=== PATIENT | female | born 1930 | race Caucasian/White ===

== ENCOUNTER → 2017-11-08 | Outpatient (CLI) | payer MEDICARE, OTHER | END | disposition home or self-care (01) | LOC: MRI 08:50 | DX: M48.04 Spinal stenosis, thoracic region (principal); F32.9 Major depressive disorder, single episode, unspecified | CPT/HCPCS: 72146 ==

== ENCOUNTER → 2019-06-05 | Outpatient (CLI) | payer MEDICARE, OTHER ==
[~2019-06-05] MED LIST: ACET500T68 PO; AMLO5TAB10 PO; ATOR10TA60 PO; BUPIVACAINE MPF 0.25% 10 ML VIAL. ONE; CALC-178 PO; CITA10TA4 PO; CYCL1DRO OP; DENO60DI SQ; DIPH25CA32 PO; IOHEXOL 180 MG/ML 10 ML VIAL. ONE; LEVO125T PO; MULT-18 PO; SERT50TA PO; [UNRECOGNIZED DRUG - OTHER]; methylPREDNISolone ACETATE 40 MG/ML VIAL. ONE
--- NOTE | 2019-06-05 15:35 | PAIN ---
DATE OF SERVICE: 06/05/2019 INITIAL CONSULTATION FOR PAIN CLINIC CHIEF COMPLAINT: Low back and left hip pain. HISTORY OF PRESENT ILLNESS: This is an 89-year-old female who presents with history of pain in the left gluteus really with pain persistent for many years, but worse over the past year. The patient has had pain in the left side of the gluteus, worse with sitting, especially driving a car. 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 The patient reports it does not awake her from sleep at night, she generally sleeps well. It does not affect her bowel or bladder control, but does affect her ability to walk significantly, especially standing more than 10-15 minutes, especially riding, sitting in a car and sitting for more than 10-15 minutes becomes excruciating. The patient reports she has had multiple therapies, physical therapies, chiropractic treatments. She has also had transforaminal epidural injections. She has had piriformis injections on the left, left hip joint injection, spinal cord stimulator trial which was not successful. No significant decrease in pain with any of these modalities by her report. She has tried hydrocodone as well as oxycodone and gabapentin, all of which did not decrease the pain. The patient has had low back surgery at L3-L4, L4-L5 and L5S1 levels in the past as well. The patient describes the pain as intermittent in intensity, radiating into the left posterior gluteus and thigh at times, but mostly just in the gluteus itself, again worse with walking, standing and pressure on the region. The patient had an MRI scan of the lumbar spine dated 01/2019 showing advanced multilevel lumbar spondylosis, multilevel high-grade neural foraminal narrowing present. Changes are most pronounced on the left at L3L4 and on the right at L3-L4 as well as L4-L5. Overall appearance is similar to previous examination. Slight interval progression of now chronic T12 osteoporotic compression fracture with very minimal associated residual marrow edema. Compared to film from 02/03/2019, the patient reports her disability rating from 0-10, 10 being at worst, is a 6 with family and home responsibilities, 9 with social activity and with occupation, 10 with self-care, especially driving and 5 with life support activities. PAST MEDICAL HISTORY: Significant for hearing loss, hypertension, arthritis, previous breast cancer in 2007. PREVIOUS SURGERIES: Include mastectomy in 2007, bilateral rotator cuff repairs, cataract extractions, hysterectomy and lumbar laminectomy with Dr. Lopez in the past. CURRENT MEDICATIONS: Include Zoloft, Synthroid and amlodipine. ALLERGIES: The patient is allergic to DAIRY and NONSTEROIDAL ANTIINFLAMMATORIES. FAMILY HISTORY: Significant for colon cancer in the patient's mother and sister with polycystic kidney disease. SOCIAL HISTORY: The patient does not drink alcohol, does not smoke, does not use any illegal, illicit or recreational drugs. She is and lives locally in [place], [place]. She is currently retired. REVIEW OF SYSTEMS: The patient's review of systems is positive for those items mentioned in the history of present illness. All systems reviewed and otherwise negative. It is complete, full and well documented on the patient's chart. PHYSICAL EXAMINATION: VITAL SIGNS: The patient's blood pressure is 144/69, pulse is 73, respirations 18, temperature 98.3 degrees Fahrenheit. Height is 5 feet 7 inches. Weight is 125 pounds. GENERAL: The patient is awake, alert, oriented, appropriate, very pleasant demeanor. The patient ____ a friend, who drove her today. HEENT: Head shows normocephalic, atraumatic. Extraocular movements are intact and symmetrical. Oral cavity: Mucous membranes moist and pink. Dentition is intact. NECK: Shows anterior throat supple without palpable lymphadenopathy noted. Swallow reflex symmetrical. CHEST: Shows normal on inspection. Breath sounds are clear to auscultation bilaterally. HEART: Shows S1, S2 clear. No murmurs auscultated. ABDOMEN: Soft, nontender, nondistended. No palpable organomegaly is noted. No rebound or guarding demonstrated. BACK: Shows spine grossly in the midline. Normal appearing thoracic kyphosis. Some minor flattening of lumbar lordotic curvature with well-healed surgical scarring noted. Lumbar paraspinous muscle shows symmetrical on inspection, with palpation shows some mild tenderness diffusely throughout the upper, middle and lower distribution of paraspinous muscles bilaterally without radiation. The patient does show good rotational motion of the lumbar spine, both laterally greater than 10 degrees right and left as well as extension greater than 10 degrees, forward flexion 45 degrees without significant pain reported in any of these maneuvers. No tenderness over the spinous processes or the sacrum or the sacroiliac region including the posterior superior iliac spine. With palpation in the left posterior gluteus and over the ischial tuberosity, it is significantly tender, very excruciatingly tender with the patient pulling away from the examining hand on the left side only. Right side is nontender. This is through into the gluteus musculature inferiorly as well with very firm rope-like musculature in the gluteus itself and around the ischial tuberosity inferior to this and slightly lateral as well. No specific radiation is demonstrated and again no tenderness on the same area on the right. EXTREMITIES: The patient's lower extremities show deep tendon reflexes, 2+ in the patella, 1+ tendo-calcaneus tendons. Motor exam is strong with approximately 4 on a scale of 5, but equal and symmetrical bilaterally with dorsiflexion, extension, quadriceps and hamstring flexion. Peripheral pulses are 1+ posterior tibia. No peripheral edema is noted. Lower extremities are warm and dry to touch, equal in color and appearance. Straight leg raise is noted to be negative for reproduction of radicular symptoms bilaterally. Gaenslen's and Junior's maneuvers are negative bilaterally as well. The patient is able to stand, has some difficulty trying to stand on her toes, but is able to do so without significant loss of balance, walks with a normal-appearing gait, not using any assistive devices to ambulate. SKIN: Shows warm and dry, good turgor. No edema. No sores, rashes or bruising throughout. IMPRESSION: 1. This is an 89-year-old female with a long history of low back and left lower extremity pain. 2. Arthritis. 3. Hypertension. 4. History of breast cancer. PLAN: Options were discussed with the patient including conservative medical management, continued physical therapy, interventional techniques and she would like to pursue interventional techniques. Again, she has had multiple techniques tried without significant improvement. We discussed trigger point injections of the left gluteus and the insertion at the hamstrings tendon on the ischial tuberosity itself. This is a very tender area consistent with some periosteal tenderness and tendinitis of the hamstrings insertion. The patient would like to proceed. Risks were discussed including but not limited to bleeding, infection, possibility of intravascular injection sequelae, spread of local anesthetic and numbness, side effects of steroid medication, exposure to fluoroscopy and poor results regarding pain control. The patient understands and wished to proceed. The patient will return to the clinic in approximately 2 weeks for followup. She was counseled as to return appointment, activity level and side effects to be aware of. DIAGNOSIS: Myofascial pain. PROCEDURE: Trigger point injections, left gluteus musculature, under sterile prep and drape using local anesthetic. MEDICATIONS INJECTED: A total of 5 mL of 0.25% bupivacaine as well as 40 mg of DepoMedrol with negative aspiration at each injection site. CONDITION AT DISCHARGE: Stable. The patient tolerated the procedure well, had no complications. MALIA CESAR MD DR: ARPITA/marcos JOB#: [id number] / [id number] ecc ,
== END ==
LOC: PNCL 09:01
PROVIDERS: ATTEND Anesthesiology
DX: M79.18 Myalgia, other site (principal); I10 Essential (primary) hypertension; Z90.710 Acquired absence of both cervix and uterus; Z85.3 Personal history of malignant neoplasm of breast; Z98.890 Other specified postprocedural states; Z90.10 Acquired absence of unspecified breast and nipple; Z88.8 Allergy status to other drugs, medicaments and biological substances; Z91.011 Allergy to milk products
CPT/HCPCS: 20552; J1030; J3490; Q9965

== ENCOUNTER → 2019-06-16 | Outpatient (CLI) | payer MEDICARE, OTHER ==
[~2019-06-16] MED LIST changes: +GABA-585 PO; -methylPREDNISolone ACETATE 40 MG/ML VIAL. ONE; +methylPREDNISolone ACETATE 80 MG/ML VIAL. ONE
--- NOTE | 2019-06-16 11:34 | PAIN ---
DATE OF SERVICE: 06/16/2019 PROGRESS NOTE FOR PAIN CLINIC DIAGNOSES: 1. Lumbar radiculopathy with lumbar post-laminectomy syndrome. 2. Myofascial pain. HISTORY OF PRESENT ILLNESS: The patient is an 89-year-old female who returns for followup status post left trigger point injections in the gluteus without significant decrease in pain. The patient reports still significant pain in the low back radiating down the posterior gluteus, posterior thigh with more radiating pain than previously, still hurts in the hip. The patient reports that 2 days ago, she had 0 pain for the entire day, but the next day, the pain came back just like it was in the low back and leg as previously. The patient has had multiple procedures in the past including spinal cord stimulator trial, which was not successful as well. The patient reports the pain is a 9 on a scale of 10 at its worst in the past week, 5 on average, 2 at its least and is a 2 today. The patient reports no new motor or sensory deficits, no new bowel or bladder incontinence. Describes the pain as aching and dull, shooting into the left lower extremity as described. PHYSICAL EXAMINATION: VITAL SIGNS: The patient's blood pressure is 146/74, pulse 71, respirations 16, temperature 97.5 degrees Fahrenheit, weight is 124 pounds. GENERAL: The patient is awake, alert, oriented, appropriate, very pleasant demeanor. HEENT: Shows normocephalic, atraumatic. Extraocular movements are intact and symmetrical. Oral cavity shows mucous membranes moist and pink. Dentition is intact. NECK: Shows anterior throat supple without palpable lymphadenopathy noted. Swallow reflex symmetrical. CHEST: Shows normal on inspection. Breath sounds are clear bilaterally. HEART: Shows S1, S2 clear. No murmurs auscultated. ABDOMEN: Soft, nontender, nondistended. BACK: Shows spine grossly in the midline. Normal appearing thoracic kyphosis and lumbar flattening with well-healed surgical scar noted in the lumbar distribution and lumbar curvature flattening. Lumbar paraspinous muscle shows symmetrical on inspection, with palpation shows some moderate tenderness throughout the upper, middle and lower distribution of the paraspinous musculature bilaterally, more on the left side than the right, but without specific trigger points or radiation. The patient has good rotational motion of lumbar spine, both laterally as well as extension and flexion without significant increase in pain. EXTREMITIES: Lower extremities show deep tendon reflexes at 2+ in the patellar and 1+ in the tendo-calcaneus tendon. Motor exam is strong with approximately 4 on a scale of 5, but equal and symmetrical bilaterally. Peripheral pulses are 1+ posterior tibia. No peripheral edema is noted. Options were discussed with the patient. The patient's old chart was reviewed as her current medication regimen updated. Current review of systems updated today as well. We will proceed with a left L5-S1 transforaminal injection today with fluoroscopic guidance. Risks were again discussed including, but not limited to bleeding, infection, possibility of epidural hematoma, subsequent neurological compromise, dural puncture, headaches, spinal cord and/or nerve damage, side effects of steroid medication, potential injection of the vertebral artery at that level and permanent ischemic damage as well as poor results regarding pain control. The patient understands and wished to proceed. The patient will return to clinic in approximately 2 weeks for followup. She was counseled as to return appointment, activity level and side effects to be aware of. DIAGNOSES: Lumbar radiculopathy with lumbar post-laminectomy syndrome. PROCEDURE: Lumbar transforaminal injection at L5-S1 using C-arm fluoroscopic guidance under sterile prep and drape using local anesthetic. MEDICATION INJECTED: A total of 2 mL of 0.25% bupivacaine, 1.5 mL of contrast and 80 mg Depo-Medrol with good medial spread of the contrast into the epidural space as well as lateral spread along the nerve root at that level with no washout detected on digital subtraction. CONDITION AT DISCHARGE: Stable. The patient tolerated the procedure well, had no complications. MALIA CESAR MD DR: ARPITA/marcos JOB#: [id number] / [id number]
== END ==
LOC: PNCL 10:03
PROVIDERS: ATTEND Anesthesiology
DX: M54.16 Radiculopathy, lumbar region (principal); M96.1 Postlaminectomy syndrome, not elsewhere classified; M79.18 Myalgia, other site
CPT/HCPCS: 64483; J1040; J3490; Q9965

== ENCOUNTER → 2019-07-12 | Outpatient (CLI) | payer MEDICARE, OTHER ==
[~2019-07-12] MED LIST changes: +GABA300C18 PO; +methylPREDNISolone ACETATE 40 MG/ML VIAL. ONE
--- NOTE | 2019-07-12 14:03 | PAIN ---
DATE OF SERVICE: 07/12/2019 PROGRESS NOTE FOR PAIN CLINIC DIAGNOSIS: Lumbar radiculopathy with lumbar post-laminectomy syndrome. HISTORY OF PRESENT ILLNESS: The patient is an 89-year-old female who returns for followup, status post lumbar transforaminal injection at L5-S1 on the left on 06/16/2019. The patient did very well, reports about 50% improvement, which is still maintaining the same level of improvement in the low back and left leg. The patient reports still has some pain in the posterior gluteus, posterior thigh on the left, but much reduced from what it was. The patient reports she has been increasing her activity with doing distance walking, traveling with greater ease and comfort, doing household activities with much greater ease. The patient reports she is sleeping better at night, does not awaken her from sleep. Reports the pain is 8 on a scale of 10 at its worst, 5 to 6 on average and a 3 on its least and is a 5 today. The patient reports it is aching, radiating to the left leg, but only intermittently and worse with sitting on the left leg as well for prolonged periods more than about 20 to 30 minutes. PHYSICAL EXAMINATION: VITAL SIGNS: The patient's blood pressure 158/74, pulse 67, respirations 16, temperature 97.3 degrees Fahrenheit, height is 5 feet 7 inches, weight is 126 pounds. GENERAL: The patient is awake, alert, oriented, appropriate, very pleasant demeanor. HEENT: Shows normocephalic, atraumatic. Extraocular movements are intact and symmetrical. Oral cavity: Mucous membranes moist and pink. Dentition is intact. NECK: Shows anterior throat supple without palpable lymphadenopathy noted. Swallow reflex symmetrical. CHEST: Shows normal on inspection. Breath sounds are clear bilaterally. HEART: Shows S1, S2 clear. ABDOMEN: Soft, nontender, nondistended. BACK: Shows spine grossly in the midline. Some slight flattening of lumbar lordotic curvature, normal thoracic kyphotic curvature. Well-healed surgical scars noted in the lumbar distribution. Lumbar paraspinous muscle shows symmetrical on inspection, with palpation shows some mild tenderness diffusely in the low lumbar distribution, slightly more on the left than the right, but only diffusely without radiation, without trigger points. The patient has good rotational motion of the lumbar spine, both laterally as well as extension and flexion without significant increase in pain. EXTREMITIES: Lower extremities show deep tendon reflexes at 2+ in the patellar, 1+ tendo-calcaneus tendons. Motor exam is 4 on a scale of 5, but equal and symmetrical bilaterally with dorsiflexion, extension, quadriceps, and hamstring flexion. Peripheral pulses are 1+ posterior tibia. No peripheral edema is noted bilaterally. PLAN: Options were discussed with the patient. The patient's old chart was reviewed as her current medication regimen updated. Current review of systems updated today as well. We will proceed with a second in this series of left L5-S1 transforaminal epidural injection using C-arm fluoroscopic guidance. Risks were again discussed including, but not limited to bleeding, infection, possibility of epidural hematoma, subsequent neurological compromise, dural puncture, headaches, spinal cord and/or nerve damage, side effects of steroid medication, potential injection of the vertebral artery at that level and permanent ischemic damage as well as poor results regarding pain control. The patient understands and wished to proceed. The patient will return to clinic in approximately 2 weeks for followup. She was counseled on return appointment, activity level and side effects to be aware of. DIAGNOSIS: Lumbar radiculopathy with lumbar post-laminectomy syndrome. PROCEDURE: Lumbar L5-S1 transforaminal injection on the left with C-arm fluoroscopic guidance under sterile prep and drape using local anesthetic. MEDICATION INJECTED: A total of 80 mg Depo-Medrol plus 2 mL of 0.25% bupivacaine, 1.5 mL of contrast with good spread medially into the epidural space as well as laterally along the nerve root, no uptake was noted with digital subtraction. CONDITION AT DISCHARGE: Stable. The patient tolerated the procedure well, had no complications. MALIA CESAR MD DR: ARPITA/marcos JOB#: [id number] / [id number]
== END ==
LOC: PNCL 10:01
PROVIDERS: ATTEND Anesthesiology
DX: M54.16 Radiculopathy, lumbar region (principal); M96.1 Postlaminectomy syndrome, not elsewhere classified
CPT/HCPCS: 64483; J1040; J3490; Q9965; J1030

== ENCOUNTER → 2019-08-02 | Outpatient (CLI) | payer MEDICARE, OTHER ==
[~2019-08-02] MED LIST changes: -methylPREDNISolone ACETATE 40 MG/ML VIAL. ONE
--- NOTE | 2019-08-03 02:40 | PAIN ---
DATE OF SERVICE: 08/02/2019 PROGRESS NOTE FOR PAIN CLINIC DIAGNOSES: 1. Lumbar radiculopathy with lumbar post-laminectomy syndrome. 2. Myofascial pain. 3. Left hip join pain. HISTORY OF PRESENT ILLNESS: The patient is an 89-year-old female who returns for followup status post lumbar transforaminal injections, trigger point injections of the left hip and transforaminal injection x 2, with 50% improvement after the first injection in June and then on 07/12 had a left lumbar transforaminal with no significant improvement. We discussed other options at her last visit and she is noticing that the pain is mainly coming from the left hip and into the lower leg at that point, it is not as much in the back at this point consistent with some piriformis syndrome findings. The patient reports pain is a 10 on a scale of 10 at its worst over the past week, 7 on average, 1 at its least and is a 7 today. The patient reports it is aching, sharp, becoming more constant, on and off in intensity, but she cannot sit for more than about 10 minutes. She has to lie down and she is indeed lying down in the waiting room today as well as in the exam room on initial evaluation. The patient reports the pain is in the left hip radiating to posterior thigh, posterior calf and into the left ankle. The patient reports it is worse with walking, standing and sitting, does not awaken her from sleep, better with lying down and lying on her right side. PHYSICAL EXAMINATION: VITAL SIGNS: The patient's blood pressure 128/78, pulse 67, respirations 18, temperature 98.2 degrees Fahrenheit, height is 5 feet 7 inches, weight is 126 pounds. GENERAL: The patient is awake, alert, oriented, appropriate, very pleasant demeanor. HEENT: Shows normocephalic, atraumatic. Extraocular movements are intact and symmetrical. Oral cavity: Mucous membranes moist and pink. Dentition is intact. NECK: Shows anterior throat supple without palpable lymphadenopathy noted. CHEST: Shows breath sounds clear to auscultation bilaterally. HEART: Shows S1, S2 clear. No murmurs auscultated. ABDOMEN: Soft, nontender, nondistended. No palpable organomegaly is noted. No rebound or guarding. BACK: Shows spine grossly in the midline. Normal appearing thoracic kyphosis and some minor flattening of lumbar lordotic curvature. Well-healed surgical scar noted. Lumbar paraspinous musculature shows some moderate tenderness diffusely bilaterally going diffusely without significant radiation. The patient has good rotational motion of lumbar spine without significant difficulty or pain reported. EXTREMITIES: Lower extremities show deep tendon reflexes 2+ in the patellar, 1+ tendo-calcaneus tendons. Motor exam is approximately 4 on a scale of 5, but equal and symmetrical with dorsiflexion, extension, quadriceps and hamstring flexion bilaterally. Options were discussed with the patient. The patient's old chart was reviewed as her current medication regimen updated. Current review of systems updated today as well. We will proceed with a left sided piriformis injection today with fluoroscopic guidance. Risks were again discussed including, but not limited to bleeding, infection, possibility of epidural hematoma, possible intravascular injection sequelae, spread of local anesthetic and numbness, side effects of steroid medication as well as poor results regarding pain control. The patient understands and wished to proceed. The patient will return to clinic in approximately 2 weeks for followup. She was counseled as to return appointment, activity level and side effects to be aware of. DIAGNOSIS: Lumbar radiculopathy with left piriformis syndrome. PROCEDURE: Left piriformis injection using C-arm fluoroscopic guidance under sterile prep and drape using local anesthetic. MEDICATION INJECTED: A total of 80 mg Depo-Medrol plus 3 mL of 0.25% bupivacaine and 1.5 mL of contrast. CONDITION AT DISCHARGE: Stable. The patient tolerated procedure well, had no complications. MALIA CESAR MD DR: ARPITA/marcos JOB#: [id number] / [id number]
== END | disposition home or self-care (01) ==
LOC: PNCL 09:54
PROVIDERS: ATTEND Anesthesiology
DX: M79.18 Myalgia, other site (principal); M54.16 Radiculopathy, lumbar region; M96.1 Postlaminectomy syndrome, not elsewhere classified
CPT/HCPCS: 20552; 77002; J1040; J3490; Q9965

== ENCOUNTER → 2019-08-16 | Outpatient (CLI) | payer MEDICARE, OTHER ==
[~2019-08-16] MED LIST changes: -BUPIVACAINE MPF 0.25% 10 ML VIAL. ONE; +methylPREDNISolone ACETATE 40 MG/ML VIAL. ONE
--- NOTE | 2019-08-16 21:09 | PAIN ---
DATE OF SERVICE: 08/16/2019 PROGRESS NOTE FOR PAIN CLINIC DIAGNOSES: 1. Lumbar radiculopathy with lumbar post-laminectomy syndrome. 2. Myofascial pain. HISTORY OF PRESENT ILLNESS: The patient is an 89-year-old female who returns for followup status post transforaminal injections, lumbar as well as last visit a piriformis injection on the left. The patient reports only minimal decrease in pain but was better for a few days following the injection, but the pain is still significant in the low back, left lower extremity radiating to posterior gluteus, posterior thigh, and posterior calf, worse with walking, standing, and changing positions, sometimes better with walking, but then worse with standing for prolonged periods or sitting for more than 10-15 minutes at a time on the left side. The patient reports no new motor or sensory deficits, no new bowel or bladder incontinence or other complaints. Still significant pain in the low back, left gluteus, left thigh, reported as 7 on a scale of 10 at its worst over the past week, 5 on average, 2 at its least and is a 5 today. The patient reports it is aching and sharp, on and off in intensity. The patient reports it has generally not awakened her from sleep lately but can once in a while. The patient was increasing her walking initially, but now, the walking is becoming painful on some days but not others. PHYSICAL EXAMINATION: VITAL SIGNS: The patient's blood pressure is 130/70, pulse 67, respirations 18, temperature 97.4 degrees Fahrenheit, height is 5 feet 7 inches, and weight is 127 pounds. GENERAL: The patient is awake, alert, oriented, appropriate, very pleasant demeanor. HEENT: Shows normocephalic, atraumatic. Extraocular movements are intact and symmetrical. Oral cavity shows mucous membranes moist and pink. Dentition is intact. NECK: Shows anterior throat supple without palpable lymphadenopathy noted. Swallow reflex symmetrical. CHEST: Shows normal on inspection. Breath sounds clear to auscultation bilaterally. HEART: Shows S1, S2 clear. No murmurs auscultated. ABDOMEN: Soft, nontender, and nondistended. BACK: Shows spine grossly in the midline. Normal-appearing thoracic kyphosis and some minor flattening of lumbar lordotic curvature with well-healed surgical scar noted. Lumbar paraspinous muscle shows symmetrical on inspection. On palpation, some only mild tenderness in the low lumbar distribution diffusely. The patient has full rotational motion of lumbar spine, both laterally as well as extension and flexion without difficulty. EXTREMITIES: The patient's lower extremities show deep tendon reflexes at 2+ in the patellar, 1+ tendo-calcaneus tendons. Motor exam is approximately 4 on a scale of 5, but equal and symmetrical with dorsiflexion, extension, quadriceps and hamstring flexion. Peripheral pulses are 1+ in posterior tibia. No peripheral edema bilaterally. Options were discussed with the patient. The patient's old chart was reviewed as her current medication regimen updated. Current review of systems updated today as well, and we will proceed with a caudal approach, epidural steroid injection today with fluoroscopic guidance. Risks were again discussed including but not limited to bleeding, infection, possibility of epidural hematoma, subsequent neurological compromise, dural puncture, headaches, spinal cord and/or nerve damage, side effects of steroid medication and poor results regarding pain control. The patient understands and wished to proceed. The patient will return to the clinic in approximately 2 weeks for followup. She was counseled on return appointment, activity level, and side effects to be aware of. DIAGNOSIS: Lumbar radiculopathy with lumbar post-laminectomy syndrome. PROCEDURE: Caudal epidural steroid injection using C-arm fluoroscopic guidance under sterile prep and drape using local anesthetic. MEDICATION INJECTED: Total of 120 mg Depo-Medrol plus 10 mL of preservative-free normal saline and 2 mL of contrast. CONDITION AT DISCHARGE: Stable. The patient tolerated the procedure well, had no complications. MALIA CESAR MD DR: ARPITA/marcos JOB#: [id number] / [id number]
== END ==
LOC: PNCL 10:10
PROVIDERS: ATTEND Anesthesiology
DX: M54.16 Radiculopathy, lumbar region (principal); M96.1 Postlaminectomy syndrome, not elsewhere classified; M79.18 Myalgia, other site
CPT/HCPCS: 62323; J1030; J1040; Q9965

== ENCOUNTER → 2019-08-30 | Outpatient (CLI) | payer MEDICARE, OTHER ==
--- NOTE | 2019-08-30 12:56 | PAIN ---
DATE OF SERVICE: 08/30/2019 PROGRESS NOTE FOR PAIN CLINIC DIAGNOSES: 1. Lumbar radiculopathy with lumbar post-laminectomy syndrome. 2. Myofascial pain and piriformis syndrome. HISTORY OF PRESENT ILLNESS: The patient is an 89-year-old female who returns for followup status post caudal epidural steroid injection x1 with about 60% improvement in the left hip and leg pain. The patient reports she has not done very well with the other injections. We did transforaminal injections on the left piriformis injection only with minimal decrease in pain about 50% with the transforaminal injection and trigger points were not helpful in the past as well. The patient reports that the caudal epidural helped the most of any of the approaches we have done with her injections. The patient reports still some pain in the left hip and into the posterior thigh, but only very minimal and now it comes and goes. The patient reports she has increased her activity with greater ease and comfort, walking better, traveling with better ease and comfort as well and sleeping better at night, does not awaken her from sleep generally. The patient reports no new motor or sensory deficits, no new bowel or bladder incontinence. Rates his pain as a 6 on a scale of 10 at its worst, 4 on average, 2 at its least over the past week and is a 2 today. PHYSICAL EXAMINATION: VITAL SIGNS: The patient's blood pressure is 132/75, pulse 75, respirations 18, temperature is 98.0 degrees Fahrenheit, height is 5 feet 7 inches, weighs 131 pounds. GENERAL: The patient is awake, alert, oriented, appropriate, very pleasant demeanor. HEENT: Head shows normocephalic, atraumatic. Extraocular movements are intact and symmetrical. Oral cavity: Mucous membranes are moist and pink. Dentition is intact. NECK: Shows anterior throat supple without palpable lymphadenopathy noted. Swallow reflex symmetrical. CHEST: Shows normal on inspection. Breath sounds are clear to auscultation bilaterally. HEART: Shows S1, S2 clear. No murmurs auscultated. ABDOMEN: Soft, nontender, nondistended. No palpable organomegaly is noted. No rebound or guarding demonstrated. BACK: Shows spine grossly in the midline. Normal appearing thoracic kyphosis and minor flattening of lumbar lordotic curvature with well-healed surgical scar noted. Lumbar paraspinous muscle shows symmetrical on inspection, on palpation shows some moderate tenderness diffusely bilaterally going diffusely without significant radiation. EXTREMITIES: The patient's lower extremities show deep tendon reflexes at 2+ in the patellar, 1+ tendo-calcaneus tendons. Motor exam is 4 on a scale of 5, but equal and symmetrical with dorsiflexion, extension, quadriceps and hamstring flexion bilaterally. Peripheral pulses are 1+ posterior tibia. No peripheral edema is noted. Options were discussed with the patient. The patient's old chart was reviewed as her current medication regimen updated. Current review of systems updated today as well. We will proceed with a second in a series of caudal approach epidural steroid injection today with fluoroscopic guidance. Risks were again discussed including, but not limited to bleeding, infection, possibility of epidural hematoma, subsequent neurological compromise, dural puncture, headaches, spinal cord and/or nerve damage, side effects of steroid medication and poor results regarding pain control. The patient understands and wished to proceed. The patient will return to clinic in approximately 2 weeks for followup. She was counseled on return appointment, activity level and side effects to be aware of. DIAGNOSIS: Lumbar radiculopathy with lumbar post-laminectomy syndrome. PROCEDURE: Lumbar epidural steroid injection, caudal approach at the caudal sacral hiatus under sterile prep and drape using local anesthetic. MEDICATION INJECTED: A total of 120 mg Depo-Medrol plus 10 mL of preservative-free normal saline and 2 mL of contrast. CONDITION AT DISCHARGE: Stable. The patient tolerated the procedure well, had no complications. MALIA CESAR MD DR: ARPITA/marcos JOB#: [id number] / [id number]
== END ==
LOC: PNCL 10:01
PROVIDERS: ATTEND Anesthesiology
DX: M54.16 Radiculopathy, lumbar region (principal); M96.1 Postlaminectomy syndrome, not elsewhere classified
CPT/HCPCS: 62323; J1030; J1040; Q9965

== ENCOUNTER → 2019-12-04 | Outpatient (CLI) | payer MEDICARE, OTHER ==
--- NOTE | 2019-12-04 14:26 | PAIN ---
DATE OF SERVICE: 12/04/2019 PROGRESS NOTE FOR PAIN CLINIC DIAGNOSES: 1. Lumbar radiculopathy with lumbar post-laminectomy syndrome. 2. Myofascial pain. HISTORY OF PRESENT ILLNESS: The patient is an 89-year-old female who returns for followup status post caudal epidural steroid injection x 2, most recently on 08/30. The patient did very well with about 100% improvement by her estimation until about a week ago. The pain began to return in the left posterior gluteus, posterior thigh, radiating across the low back as well. The patient reports it is aching, on and off in intensity, worse with activity, standing, walking, changing positions, rates as 8 on a scale of 10 at its worst over the past week, 5-6 on average, 2-3 at its least and is a 5 today. The patient reports no loss of motor function, but significant pain and fatigability of the left hip. The patient reports it does not generally awaken her from sleep at night. Initially, she was doing much better with activity, walking, doing work activities, household activities, traveling with greater ease and comfort. The patient reports now the pain is returning to a fairly significant extent for the past week. No new motor or sensory deficits, no new bowel or bladder incontinence or other complaints. PHYSICAL EXAMINATION: VITAL SIGNS: The patient's blood pressure 157/83, pulse 88, respirations 18, temperature 98.6 degrees Fahrenheit, and weight is 132 pounds. GENERAL: The patient is awake, alert, oriented, appropriate, very pleasant demeanor. HEENT: Shows normocephalic, atraumatic. Extraocular movements are intact and symmetrical. Oral cavity shows mucous membranes moist and pink. Dentition is intact. NECK: Shows anterior throat supple without palpable lymphadenopathy noted. Swallow reflex symmetrical. CHEST: Shows normal on inspection. Breath sounds are clear bilaterally. HEART: Shows S1, S2 clear. No murmurs auscultated. ABDOMEN: Soft, nontender, nondistended. No palpable organomegaly is noted. No rebound or guarding demonstrated. BACK: Shows spine grossly in the midline. Slight exaggeration of thoracic kyphosis and minor flattening of lumbar lordotic curvature. There is some moderate tenderness with palpation in the lower thoracic and upper lumbar distribution over the spinous processes, but without radiation. Lumbar paraspinous muscle shows symmetrical on inspection, with palpation shows some moderate tenderness, but only diffusely in the low lumbar distribution bilaterally without radiation. The patient has good rotational motion of lumbar spine, both laterally as well as extension and flexion without significant increase in pain. EXTREMITIES: The patient's lower extremities show deep tendon reflexes 2+ in the patellar, 1+ tendo-calcaneus tendons. Motor exam is approximately 4 on a scale of 5, but equal and symmetrical bilaterally. Peripheral pulses are 1+ posterior tibia. No peripheral edema is noted bilaterally. Options were discussed with the patient. The patient's old chart was reviewed as her current medication regimen updated. Current review of systems updated today as well. We will proceed with a third in the series of caudal approach epidural steroid injection with fluoroscopic guidance. Risks were again discussed including, but not limited to bleeding, infection, possibility of epidural hematoma, subsequent neurological compromise, dural puncture, headaches, spinal cord and/or nerve damage, side effects of steroid medication and poor results regarding pain control. The patient understands and wished to proceed. The patient will return to clinic in approximately 2 weeks for followup. She was counseled on return appointment, activity level and side effects to be aware of. DIAGNOSES: Lumbar radiculopathy with lumbar post-laminectomy syndrome. PROCEDURE: Lumbar epidural steroid injection, caudal approach using C-arm fluoroscopic guidance under sterile prep and drape using local anesthetic. MEDICATION INJECTED: A total of 120 mg Depo-Medrol plus 10 mL of preservative-free normal saline and 2 mL of contrast. CONDITION AT DISCHARGE: Stable. The patient tolerated the procedure well, had no complications. MALIA CESAR MD DR: ARPITA/marcos JOB#: [id number] / [id number]
== END ==
LOC: PNCL 12:52
PROVIDERS: ATTEND Anesthesiology
DX: M54.16 Radiculopathy, lumbar region (principal); M96.1 Postlaminectomy syndrome, not elsewhere classified; M79.18 Myalgia, other site
CPT/HCPCS: 62323; J1030; J1040; Q9965

== ENCOUNTER → 2019-12-04 | Outpatient (CLI) | payer MEDICARE, OTHER ==
[~2019-12-04] MED LIST changes: -IOHEXOL 180 MG/ML 10 ML VIAL. ONE; -methylPREDNISolone ACETATE 40 MG/ML VIAL. ONE; -methylPREDNISolone ACETATE 80 MG/ML VIAL. ONE
--- NOTE | 2019-12-04 16:39 | RAD ---
Three-view thoracic spine series Clinical indications: Left-sided thoracic pain. History T12 fracture. COMPARISON STUDY: MRI study of the thoracic spine dated November 08, 2017. FINDINGS: There is a moderate compression fracture of T12 which has been treated with methylmethacrylate. There is a mild compression fracture of the superior endplate of T11. This was seen previously and is stable. No discitis or lytic process is evident. There is dextroscoliosis of the lumbar spine. IMPRESSION: Stable old mild compression fracture of the superior endplate of T11. Since the previous MRI study in 2018, there is a new finding of a moderate compression fracture of T12 with this has been treated with methylmethacrylate. Otherwise no other compression fracture is seen. Electronically signed by: Lucas Allen MD (12/04/2019 4:37 PM) [id number]
== END | disposition home or self-care (01) ==
LOC: RAD 15:10
PROVIDERS: ATTEND Anesthesiology
DX: M54.6 Pain in thoracic spine (principal); M41.86 Other forms of scoliosis, lumbar region
CPT/HCPCS: 72072

== ENCOUNTER → 2020-02-20 | Outpatient (CLI) | payer MEDICARE, OTHER ==
[~2020-02-20] MED LIST changes: +IOHEXOL 180 MG/ML 10 ML VIAL. ONE; +methylPREDNISolone ACETATE 40 MG/ML VIAL. ONE; +methylPREDNISolone ACETATE 80 MG/ML VIAL. ONE
--- NOTE | 2020-02-20 10:59 | PDOC ---
Progress Note - Pain Clinic Date of Service: DOS: DATE: 02/20/20 TIME: 10:55 Diagnosis: Dx: Lumbar radiculopathy with lumbar postlaminectomy syndrome Myofascial pain Left ischial bursitis History or Present Illness: HPI: 89-year-old female returns for follow-up status post caudal approach epidural steroid injection most recently December 04, 2019. Patient reports pain was significant reduced by 98% after the last injection for about 2 months. Patient ports pain returning now in the low back and left leg left hip and side for about 1 month patient reports the pain is an 8 on scale 10 is worse over the past week 5 on average and at 2 at its least is a 5 today. Reports initially she was doing much better with distance walking and doing household activities try with greater ease and comfort reports is been sleeping well at night and continues to sleep well does not awaken her from sleep. Patient ports pain is on and off in intensity to the left side in the low back and hip aching and dull and shooting at times worse with activity walking standing. Patient reports he is currently doing physical therapy and doing exercise on her own through [facility] and is doing very well and feels that it is quite beneficial. Patient reports no new motor or sensory deficits no new bowel or bladder con's or other complaints. Physical Exam: VS: Blood pressure is 120/63 pulse 70 respiration 16 temperature 98.4 F weight is 131 pounds PE: PHYSICAL EXAMINATION: GENERAL: The patient is awake, alert, oriented, appropriate, very pleasant demeanor HEENT: Shows normocephalic, atraumatic. Extraocular movements are intact and symmetrical. Oral cavity: Mucous membranes moist and pink. Dentition is intact. NECK: Shows anterior throat supple without palpable lymphadenopathy noted. CHEST: Shows normal on inspection. Breath sounds are clear bilaterally, no rales rhonchi or wheezes auscultated. HEART: Shows S1, S2 clear. No murmurs auscultated. ABDOMEN: Soft, nontender, nondistended. No palpable organomegaly is noted. No rebound or guarding demonstrated. BACK: Shows spine grossly in the midline. Normal-appearing cervical lordotic curvature. There is slightly increased thoracic kyphosis, some minor flattening of the lumbar lordotic curvature. Lumbar paraspinous muscles show symmetrical on inspection, on palpation shows some moderate tenderness diffusely throughout the upper, middle and lower distribution of the paraspinous muscles bilaterally firm and tender, but without specific trigger points, without radiation of pain. The patient has good rotational motion of the lumbar spine, both laterally as well as extension and flexion without significant difficulty. No tenderness over the spinous processes, sacrum or sacroiliac regions. EXTREMITIES: Lower extremities show deep tendon reflexes 2+ in the patellar and tendo calcaneus tendons. Motor exam is 4 on a scale of 5 with right dorsiflexion, extension, quadriceps and hamstring flexion and 4/5 on the left. Peripheral pulses are 1+ posterior tibial. No peripheral edema is noted bilaterally. Lower extremities are warm and dry to touch, equal in color and appearance. The patient is able to stand, stand on her toes without significant difficulty walks with a normal-appearing gait for short distance in the office today not using any assistive devices such as canes or walkers.. SKIN: Shows warm and dry, good turgor. No edema. No sores, rashes or bruising throughout. Procedure: Procedure: Options were discussed with the patient. Patient's old chart was reviewed as her current medication regimen updated current review of systems updated today as well. We will proceed with a caudal approach epidural steroid injection today with fluoroscopic guidance. Risks were again discussed including but not limited to bleeding infection possibility of epidural hematoma and subsequent neurological compromise dural puncture headache spinal cord and or nerve damage side effects of steroid medication and poor results regarding pain control. Patient understands and wished to proceed. Patient return to clinic in approximate 2 weeks for follow-up was counseled as to return appointment activity level and side effects to be aware. Medication Injected: Med Injected: Procedure is lumbar epidural steroid injection under local anesthetic using sterile prep and drape at the caudal level using C-arm fluoroscopic guidance in both AP and lateral views medications injected is 120 mg Depo-Medrol + 10 mL preservative-free normal saline and 2 mL for contrast- condition at discharge is stable patient tolerated procedure well had no complications. Condition at Discharge: Condition at Discharge: Condition at discharge is stable patient tolerated the procedure well and had no complications. MALIA CESAR MD Feb 20, 2020 10:59
== END | disposition home or self-care (01) ==
LOC: PNCL 10:05
PROVIDERS: ATTEND Anesthesiology
DX: M54.16 Radiculopathy, lumbar region (principal); M96.1 Postlaminectomy syndrome, not elsewhere classified; M71.58 Other bursitis, not elsewhere classified, other site; M79.18 Myalgia, other site; Z88.8 Allergy status to other drugs, medicaments and biological substances; Z79.899 Other long term (current) drug therapy
CPT/HCPCS: 62323; J1030; J1040; Q9965

== ENCOUNTER → 2020-08-26 | Outpatient (CLI) | payer MEDICARE, OTHER ==
[~2020-08-26] MED LIST changes: +AMLO-186 PO; -AMLO5TAB10 PO; +LIDOCAINE 1% PF 2 ML VIAL. ONE
--- NOTE | 2020-08-26 14:02 | PDOC ---
Progress Note - Pain Clinic Date of Service: DOS: DATE: 08/26/20 TIME: 13:59 Diagnosis: Dx: Lumbar radiculopathy with lumbar postlaminectomy syndrome Myofascial pain History or Present Illness: HPI: 89-year-old female returns follow-up status post caudal epidural steroid injection x2, last seen June 18, 2020 prior to that was February 20, 2020 patient did very well with near 100% improvement with the first 2 injections and was only by 50% improved with still pain in the low back and left lower extremity. Patient reports worse with walking standing changing positions better with sitting or laying down generally is not awaken her from sleep at [id number] but is getting more noticeable and was not asked significant of and reduction in pain after her last visit as she has had previously. Patient reports the pain is still on and off in intensity worse with standing walking better with sitting or laying down patient reports the pain is a 9 on scale 10 is worse over the past week 6 on average to its least and is a 6 today. Patient reports no new motor or sensory deficits no new bowel or bladder incontinence or other complaints. Patient reports she continues to do stretching and strengthening exercises daily, and walks as well on most days. Physical Exam: VS: Blood pressure is 124/74 pulse 83 respirations 18 temperature 98.1 F height is 5 feet 7 inches weight 130 pounds PE: PHYSICAL EXAMINATION: GENERAL: The patient is awake, alert, oriented, appropriate, very pleasant demeanor HEENT: Shows normocephalic, atraumatic. Extraocular movements are intact and symmetrical. Patient wearing eyeglasses. Oral cavity: Mucous membranes moist and pink. NECK: Shows anterior throat supple without palpable lymphadenopathy noted. Swallow reflex symmetrical. CHEST: Shows normal on inspection. Breath sounds are clear bilaterally, no rales or rhonchi. HEART: Shows S1, S2 clear. No murmurs auscultated. ABDOMEN: Soft, nontender, nondistended, flat. No palpable organomegaly is noted. BACK: Shows spine grossly in the midline. Normal-appearing cervical lordotic curvature. There is slightly increased thoracic kyphosis, some minor flattening of the lumbar lordotic curvature. Well-healed surgical scarring is noted in the lumbar midline. Lumbar paraspinous muscles show symmetrical on inspection, on palpation shows some moderate tenderness diffusely throughout the upper, middle and lower distribution of the paraspinous muscles, without specific trigger points, without radiation of pain. The patient has good rotational motion of the lumbar spine, both laterally as well as extension and flexion without significant difficulty. EXTREMITIES: Lower extremities show deep tendon reflexes 2+ in the patellar and tendo calcaneus tendons. Motor exam is 4 on a scale of 5 with right dorsiflexion, extension, quadriceps and hamstring flexion and 4/5 on the left. Peripheral pulses are 1+ posterior tibial. No peripheral edema is noted bilaterally. Lower extremities are warm and dry to touch, equal in color and appearance. SKIN: Shows warm and dry, good turgor. No edema. No sores, rashes or bruising throughout. Procedure: Procedure: Options were discussed with the patient. Patient chart reviews her current medication regimen updated current review of systems updated today as well. We will proceed with a third in the series caudal approach epidural steroid injection today with fluoroscopic guidance. Risks were discussed including but not limited to: Bleeding, infection, possibility of epidural hematoma and subsequent neurological compromise, dural puncture, headaches, spinal cord and/or nerve damage, side effects of steroid medication, and poor results regarding pain control. Patient understands and wished to proceed. Patient re turn to clinic in approximate 2 weeks for follow-up, was counseled as to return appointment activity level and side effects to be aware of. Medication Injected: Med Injected: Procedure is lumbar epidural steroid injection under local anesthetic using sterile prep and drape at the caudal level using C-arm fluoroscopic guidance in both AP and lateral views medications injected is 120 mg Depo-Medrol + 10 mL preservative-free normal saline and 2 mL contrast- condition at discharge is stable patient tolerated procedure well had no complications. Condition at Discharge: Condition at Discharge: Condition at discharge stable, patient tolerated the procedure well and had no complications. MALIA CESAR MD Aug 26, 2020 14:02
--- NOTE | 2020-08-26 14:03 | PDOC4 ---
PROCEDURE Procedure Patient was consented for caudal approach lumbar epidural steroid injection. Risks were discussed including but not limited to: Bleeding, infection, possibility of epidural hematoma and subsequent neurological compromise, dural puncture, headaches, spinal cord and/or nerve damage, side effects of steroid medication, and poor results regarding pain control. Patient understands and wished to proceed. Procedure is lumbar epidural steroid injection under local anesthetic using sterile prep and drape at the caudal level using C-arm fluoroscopic guidance in both AP and lateral views medications injected is 120 mg Depo-Medrol + 10 mL preservative-free normal saline and 2 mL contrast- condition at discharge is st able patient tolerated procedure well had no complications. MALIA CESAR MD Aug 26, 2020 14:03
== END | disposition home or self-care (01) ==
LOC: PNCL 12:59
PROVIDERS: ATTEND Anesthesiology
DX: M54.16 Radiculopathy, lumbar region (principal); M96.1 Postlaminectomy syndrome, not elsewhere classified; M79.10 Myalgia, unspecified site; Z79.899 Other long term (current) drug therapy; Z88.8 Allergy status to other drugs, medicaments and biological substances
CPT/HCPCS: 62323; J1030; J1040; J3490; Q9965

== ENCOUNTER → 2020-09-04 | Outpatient (CLI) | payer MEDICARE, OTHER ==
[~2020-09-04] MED LIST changes: -IOHEXOL 180 MG/ML 10 ML VIAL. ONE; -LIDOCAINE 1% PF 2 ML VIAL. ONE; -methylPREDNISolone ACETATE 40 MG/ML VIAL. ONE; -methylPREDNISolone ACETATE 80 MG/ML VIAL. ONE
--- NOTE | 2020-09-04 14:49 | KCIC ---
EXAMINATION: MRI PELVIS WITHOUT IV CONTRAST AND MRI LEFT HIP WITHOUT IV CONTRAST CLINICAL HISTORY: Left hip and pelvic pain. Chronic left ischium pain. TECHNIQUE: Multiplanar multisequential images obtained through the pelvis and left hip without intrav enous contrast. COMPARISON: None FINDINGS: Left Hip: No labral tear. No full-thickness chondral defect. No acute fracture. No avascular necrosis . No significant joint effusion. No synovitis. Right Hip: No acute fracture. No avascular necrosis. Large field of view images limits evaluation of labrum and cartilage. Sacroiliac joints: Within normal limits. Pubic symphysis: Within normal limits. Tendons: Mild tendinosis bilateral hamstring origins, greater on the right. Mild insertional tendinos is bilateral gluteus minimus tendons, greater on the right. Tendons otherwise within normal limits, i ncluding the iliopsoas and rectus femoris tendons. Muscles: Within normal limits. Bone Marrow: No evidence of acute fracture or suspicious marrow replacing process. Other: Partially visualized dextroscoliosis and degenerative changes in the lumbar spine. Sigmoid div erticulosis without evidence of diverticulitis. IMPRESSION: Mild bilateral hamstring and gluteal tendinosis as described, greater on the right. No evidence of acute fracture or significant degenerative changes. Electronically signed by: Kobe Suggs DO (09/04/2020 2:47 PM) [id number]
== END | disposition home or self-care (01) ==
LOC: KCIC MRI 12:30
PROVIDERS: ATTEND Anesthesiology
DX: M25.552 Pain in left hip (principal); R10.2 Pelvic and perineal pain; Z79.899 Other long term (current) drug therapy
CPT/HCPCS: 72195; 73721

== ENCOUNTER → 2020-11-12 | Outpatient (CLI) | payer MEDICARE, OTHER ==
[~2020-11-12] MED LIST changes: +BUPIVACAINE MPF 0.25% 10 ML VIAL. ONE; +IOHEXOL 180 MG/ML 10 ML VIAL. ONE; +methylPREDNISolone ACETATE 80 MG/ML VIAL. ONE
--- NOTE | 2020-11-12 11:20 | PDOC ---
Progress Note - Pain Clinic Date of Service: DOS: DATE: 11/12/20 TIME: 11:16 Diagnosis: Dx: Lumbar radiculopathy with lumbar postlaminectomy syndrome Myofascial pain Left ischial bursitis History or Present Illness: HPI: 89-year-old female returns for follow-up status post caudal epidural steroid injections x3. Patient reports initially did very well with the last injection only about 50% improved in the low back pain her main complaint is left posterior hip pain. Patient reports is worse with sitting and is a very speci fic area on the left inferior posterior hip only exacerbated with sitting patient reports is not awakening from sleep at night feels better when she stands or walks she is doing some stretching and physical therapy which she feels is very helpful but the pain is still significant with prolonged sitting. Patient reports no radiation of pain significantly only on the left side patient cries unbearable on and off in intensity sharp stabbing and shooting at times and stabbing mostly in the left buttock. Physical Exam: VS: Blood pressure is 139/73 pulse 81 respiration 16 temperature 90.3 F weight is 128 pounds PE: PHYSICAL EXAMINATION: GENERAL: The patient is awake, alert, oriented, appropriate, very pleasant demeanor, patient accompanied by her daughter. HEENT: Shows normocephalic, atraumatic. Extraocular movements are intact and symmetrical. Oral cavity: Mucous membranes moist and pink. Dentition is intact. NECK: Shows anterior throat supple without palpable lymphadenopathy noted. Swallow reflex symmetrical. CHEST: Shows normal on inspection. Breath sounds are clear bilaterally. HEART: Shows S1, S2 clear. No murmurs auscultated. ABDOMEN: Soft, nontender, nondistended. No palpable organomegaly is noted. No rebound or guarding demonstrated. BACK: Shows spine grossly in the midline. Normal-appearing cervical lordotic curvature. There is slightly increased thoracic kyphosis, some minor flattening of the lumbar lordotic curvature. Well-healed surgical scarring is again noted. Lumbar paraspinous muscles show symmetrical on inspection, on palpation shows some moderate tenderness diffusely throughout the upper, middle and lower distribution of the paraspinous muscles, but without specific trigger points, without radiation of pain. The patient has good rotational motion of the lumbar spine, both laterally as well as extension and flexion without significant difficulty. With palpation of the left ischial tuberosity has significant tenderness in the inferior posterior aspect of the ischial tuberosity itself over the left ischial bursa. No specific radiation but very severe significant pain with direct palpation right side is nontender to even deep palpation. EXTREMITIES: Lower extremities show deep tendon reflexes 2+ in the patellar and tendo calcaneus tendons. Motor exam is 4 on a scale of 5 with right dorsiflexion, extension, quadriceps and hamstring flexion and 4/5 on the left. Peripheral pulses are 1+ posterior tibial. No peripheral edema is noted b ilaterally. Lower extremities are warm and dry to touch, equal in color and appearance. SKIN: Shows warm and dry, good turgor. No edema. No sores, rashes or bruising throughout. Procedure: Procedure: Options were discussed with the patient. Patient chart reviews her current medication regimen updated current review of systems updated today as well. We will proceed with a left ischial bursa injection with fluoroscopic guidance today. Risks were discussed including but not limited to bleeding infection possibility of intravascular injection sequelae spread local anesthetic numbness side effects of steroid medication special fluoroscopy and portals regarding pain control. Patient understands wished to proceed. Patient return to the clinic in approximate 2 weeks for follow-up, was counseled as return appointment activity level and side effects to be aware of. Medication Injected: Med Injected: Patient sitting position under sterile prep and drape identified areas of musculature in the cervical paraspinous posterior trapezius musculature thoracic paraspinous musculature lumbar paraspinous musculature, were injected using a 25-gauge 1/2 inch needle after negative aspiration each injection site for a total of 12 cc of 0.25% bupivacaine and total of 40 mg Depo-Medrol. Patient tolerated procedure well had no complications. Condition at Discharge: Condition at Discharge: Condition at discharge is stable, patient already procedure well and had no complications. MALIA CESAR MD November 12, 2020 11:20
--- NOTE | 2020-11-12 11:22 | PDOC4 ---
PROCEDURE Procedure Patient was consented for left ischial bursa injection. Risk were discussed including but not limited to bleeding infection possibility of intravascular injection sequelae spread to local anesthetic and numbness side effects steroid medication exposure fluoroscopy and portals regarding pain control. Patient understands wished to proceed. Patient right lateral decubitus position under sterile prep and drape using C- arm fluoroscopic guidance patient's left ischial tuberosity was visualized and using 1% lidocaine to anesthetize the skin and a 25-gauge needle the ischial tuberosity was then injected under direct fluoroscopic visualization with 1 cc of contrast showing good spread within the left ischial bursa without washout. At this time solution containing 0.25% bupivacaine and 80 mg Depo-Medrol was then injected into the left ischial bursa. Needle was removed and sterile bandage was applied. Patient tolerated procedure well and had no complications. MALIA CESAR MD November 12, 2020 11:22
== END | disposition home or self-care (01) ==
LOC: PNCL 10:21
PROVIDERS: ATTEND Anesthesiology
DX: M70.72 Other bursitis of hip, left hip (principal); M54.16 Radiculopathy, lumbar region; M96.1 Postlaminectomy syndrome, not elsewhere classified; M79.18 Myalgia, other site; Z79.899 Other long term (current) drug therapy; Z88.8 Allergy status to other drugs, medicaments and biological substances
CPT/HCPCS: 20610; 77002; J1040; J3490; Q9965; 20605

== ENCOUNTER → 2020-12-11 | Outpatient (CLI) | payer MEDICARE, OTHER ==
[~2020-12-11] MED LIST changes: +ASCO100T4 PO; -BUPIVACAINE MPF 0.25% 10 ML VIAL. ONE; +CALC500T30 PO; +CHOL10004 PO; -IOHEXOL 180 MG/ML 10 ML VIAL. ONE; +MULT-245 PO; -methylPREDNISolone ACETATE 80 MG/ML VIAL. ONE
--- NOTE | 2020-12-11 11:47 | PDOC ---
Progress Note - Pain Clinic Date of Service: DOS: DATE: 12/11/20 TIME: 11:43 Diagnosis: Dx: Lumbar radiculopathy with lumbar postlaminectomy syndrome Myofascial pain Left ischial bursitis History or Present Illness: HPI: 89-year-old female returns for follow-up status left ischial bursa injection as well as previous caudal epidural steroid injections and piriformis injections patient initially does well with the caudal epidural steroid injections and as well as the left ischial injection however it wears off fairly quickly within a few days the pain is returned. Patient reports still in the posterior gluteus worse with sitting radiates very mildly only into the posterior thigh only to the mid thigh only with sitting. Patient reports is actually better with standing or walking she been walking about 6 blocks a day patient reports her pain is an 8 on scale 10 is worse over the past week 4-5 on average 2-3 at its least is a 5 today patient was aching on and off in intensity and constant and severe only when sitting patient reports it generally does not awaken her from sleep at night no new motor or sensory deficits no new bowel or bladder incontinence or other complaints. Physical Exam: VS: Blood pressure is 134/72 pulse 74 respirations 16 temperature 98.6 F weight is 27 pounds PE: PHYSICAL EXAMINATION: GENERAL: The patient is awake, alert, oriented, appropriate, very pleasant demeanor HEENT: Shows normocephalic, atraumatic. Extraocular movements are intact and symmetrical. Oral cavity: Mucous membranes moist and pink. NECK: Shows anterior throat supple without palpable lymphadenopathy noted. Swallow reflex symmetrical. CHEST: Shows normal on inspection. Breath sounds are clear bilaterally, no rales rhonchi or wheezes auscultated. HEART: Shows S1, S2 clear. No murmurs auscultated. ABDOMEN: Soft, nontender, nondistended. No palpable organomegaly is noted. BACK: Shows spine grossly in the midline. Normal-appearing cervical lordotic curvature. There is increased thoracic kyphosis, some mild flattening of the lumbar lordotic curvature. Lumbar paraspinous muscles show symmetrical on inspection, on palpation shows some moderate tenderness diffusely throughout the upper, middle and lower distribution of the paraspinous muscles, but without specific trigger points, without radiation of pain. The patient has good rotational motion of the lumbar spine, both laterally as well as extension and flexion without significant difficulty. Patient has significant tenderness with palpation over the left ischial tuberosity without specific radiation right side is nontender. No tenderness over the spinous processes, sacrum or sacroiliac regions. EXTREMITIES: Lower extremities show deep tendon reflexes 2+ in the patellar and tendo calcaneus tendons. Motor exam is 4 on a scale of 5 with right dorsiflexion, extension, quadriceps and hamstring flexion and 4/5 on the left. Peripheral pulses are 1+ posterior tibial. No peripheral edema is noted bilaterally. Lower extremities are warm and dry to touch, equal in color and appearance. Patient shows full rotation motion at the hip negative Junior's maneuver negative Gaenslen's maneuver as well. SKIN: Shows warm and dry, good turgor. No edema. No sores, rashes or bruising throughout. Procedure: Procedure: Options were discussed with patient. Patient chart was reviewed as her current medication regimen updated current review of systems updated today as well. We will hold on any further injections at this time as patient is feeling fairly well today also discussed the possibility of adding an anti-inflammatory. Patient reports that she has had trouble with stomach ulcers but in the very distant past from some naproxen that she took we discussed some options and she would like to try an anti-inflammatory we will try meloxicam once daily and she will monitor this frequently adverse effects as well. Patient given instructions well side effects beware with the medication and will follow up in approximate 4 weeks or sooner if necessary. Medication Injected: Med Injected: None Condition at Discharge: Condition at Discharge: Condition at discharge is stable. MALIA CESAR MD Dec 11, 2020 11:47
== END | disposition home or self-care (01) ==
LOC: PNCL 10:44
PROVIDERS: ATTEND Anesthesiology
DX: M54.16 Radiculopathy, lumbar region (principal); M96.1 Postlaminectomy syndrome, not elsewhere classified; M79.18 Myalgia, other site; M71.58 Other bursitis, not elsewhere classified, other site; I10 Essential (primary) hypertension; Z79.899 Other long term (current) drug therapy; Z88.8 Allergy status to other drugs, medicaments and biological substances; Z91.011 Allergy to milk products; Z85.3 Personal history of malignant neoplasm of breast; Z90.710 Acquired absence of both cervix and uterus; Z90.10 Acquired absence of unspecified breast and nipple
CPT/HCPCS: G0463